=== PATIENT | female | born 1980 | race Caucasian/White ===

== ENCOUNTER 2019-01-18 07:39 | Day surgery (SDC) | payer BC, MEDICAID ==
[~2019-01-18] VITALS: Ht 160 cm; Wt 65.3 kg
[2019-01-18] VITALS (17 sets, daily range): BP systolic 109–131; BP diastolic 62–86; PULSE 52–97; RESP 16–22; Ht 160 cm; Wt 65.3 kg
[~2019-01-18 07:39] MED LIST: CALC600T5 PO; CLOB2.5O PO; FOLI1POW MC; OXCA600T30 PO; PREN1TAB17 PO; SEVOFLURANE 15 MIN ONE
[2019-01-18] MEDS ORDERED: OXCA150T43 ORAL (08:44)
[2019-01-18] MEDS ORDERED: CLOB10TA ORAL (08:44)
--- NOTE | 2019-01-18 09:34 | PREAC ---
Date/Time of Note Date/Time of Note DATE: 01/18/19 TIME: 09:33 Anesthesia Eval and Record Evaluation Time Pre-Procedure Interview DATE: 01/18/19 TIME: 09:33 Age 38 Sex female NPO: 8 hrs Preoperative diagnosis Missed Planned procedure D & C Past Medical History Past Medical History: Includes Neuro: Seizure disorder Surgery & Anesthesia Issues No known issue Meds Anticoagulation: No Beta Oniel within 24 hr: No Reason Beta Oniel not given: Pt. not on B-Oniel Reported Medications Clobazam (Onfi) 10 Mg Tablet, 1 TAB ORAL BID 01/18/19 Oxcarbazepine* (Oxcarbazepine*) 150 Mg Tablet, 1 TAB ORAL BID 01/18/19 Meds reviewed: Yes Allergies Coded Allergies: No Known Allergy (Unverified , 01/18/19) Allergies Reviewed: Yes Labs/Studies Labs Reviewed: Reviewed by anesthesiologist test: Positive Pre-procedure Exam Last vitals Vital Signs Date Temp Pulse Resp B/P (MAP) Pulse Ox O2 O2 Flow FiO2 Time Delivery Rate 01/18/19 97.3 75 16 109/62 100 Room Air 09:02 (78) Airway: Adequate mouth opening Mallampati: Mallampati I Teeth: Normal Lung: Normal Heart: Normal ASA Physical Status ASA physical status: 2 Emergency: None Planned Anesthetic General/MAC: LMA Planned Pain Management Parenteral pain med Pre-operative Attestations Prior to commencing anesthesia and surgery, the patient was re-evaluated, there was verification of: *The patient's identity *The results of appropriate recent lab work and preoperative vital signs *The above evaluation not changing prior to induction *Anesthetic plan, risk benefits, alternative and complications discussed with patient/family; questions answered; patient/family understands, accepts and wishes to proceed. SHREYAS ELIZONDO MD Jan 18, 2019 09:34
[2019-01-18] MEDS ORDERED: CEFAZOLIN 2 GM/50 ML (PMX) 50 ML IVPB ONE (10:00)
[2019-01-18] MEDS ORDERED: LIDOCAINE 2% (SDV) 5 ML INJ ONE (10:09)
[2019-01-18] MEDS ORDERED: PROPOFOL 20 ML ONE (10:10)
[2019-01-18] MEDS ORDERED: METOCLOPRAMIDE 10 MG INJ ONE (10:10)
[2019-01-18] MEDS ORDERED: MEPERIDINE 100 MG INJ ONE (10:10)
[2019-01-18] MEDS ORDERED: ONDANSETRON 4 MG INJ ONE (10:10)
[2019-01-18] MEDS ORDERED: CEFAZOLIN 1 GM INJ ONE (10:10)
[2019-01-18] MEDS ORDERED: ONDANSETRON 4 MG INJ IV PRN (10:30)
[2019-01-18] MEDS ORDERED: FENTAnyl 50 MCG/ML VIAL IV PRN ×3 (10:30)
[2019-01-18] MEDS ORDERED: LABETALOL HCL 20MG INJ IV PRN (10:30)
[2019-01-18] MEDS ORDERED: EPHEDrine SULFATE 50 MG/5 ML SYG IV PRN (10:30)
[2019-01-18] MEDS ORDERED: DIPHENHYDRAMINE 50 MG INJ IV PRN (10:30)
[2019-01-18] MEDS ORDERED: OXYCODONE/ACETAMINOPHEN (5/325) TAB PO PRN ×2 (10:30)
[2019-01-18] MEDS ORDERED: MIDAZOLAM 1 MG/ML 2 ML INJ IV PRN (10:30)
[2019-01-18] MEDS ORDERED: METOCLOPRAMIDE 10 MG INJ IV PRN (10:30)
[2019-01-18] MEDS ORDERED: MEPERIDINE 25 MG INJ IV PRN (10:30)
[2019-01-18] MEDS ORDERED: hydrALAzine 20 MG INJ IV PRN (10:30)
[2019-01-18] MEDS ORDERED: OXYTOCIN 10 UNIT INJ ONE (10:35)
[2019-01-18] MEDS ORDERED: NALOXONE (0.4 MG/ML) INJ ONE (10:52)
--- NOTE | 2019-01-18 11:13 | SIPON ---
Date/Time of Note Date/Time of Note DATE: 01/18/19 TIME: 11:11 Operative Report Preoperative Diagnosis Missed AB Postoperative Diagnosis same Operation/Procedure Performed D&C Surgeon Ivone Atwood MD temporary administrative assistant none Anesthesia: general Estimated blood loss: minimal Transfusion Required none Specimen POC Grafts/Implants none Complications none IVONE OCAMPO MD Jan 18, 2019 11:13
--- NOTE | 2019-01-18 11:34 | PAC ---
Date/Time of Note Date/Time of Note DATE: 01/18/19 TIME: 11:34 Post-Anesthesia Notes Post-Anesthesia Note Last documented vital signs Vital Signs Date Temp Pulse Resp B/P (MAP) Pulse Ox O2 O2 Flow FiO2 Time Delivery Rate 01/18/19 78 20 119/69 99 Room Air 11:10 (86) 01/18/19 98.1 10:59 Activity: WNL Respiratory function: WNL Cardiovascular function: WNL Mental status: Baseline Pain reasonably controlled: Yes Hydration appropriate: Yes Nausea/Vomiting absent: Yes Comments BT: 98.4 SHREYAS ELIZONDO MD Jan 18, 2019 11:34
--- NOTE | 2019-01-18 12:10 | PREOPHP ---
DATE OF ADMISSION: 01/18/2019 HISTORY OF PRESENT ILLNESS: A 38-year-old female 3, para 1, AB 1 is admitted with history of missed . PAST MEDICAL HISTORY: Epilepsy. PAST SURGICAL HISTORY: Leg surgery. ALLERGIES: No known allergies. FAMILY HISTORY: Noncontributory. PHYSICAL EXAMINATION: VITAL SIGNS: The patient is afebrile. Vital signs stable. HEAD, NECK AND CHEST: Within normal limits. ABDOMEN: Soft, nontender, nondistended. PELVIC: Cervix is closed. EXTREMITIES: Neurologically normal. IMPRESSION: Missed . PLAN: Dilation and curettage. Risks, benefits and alternatives of procedure were explained to the p atient. The patient said she understood and gave informed consent for the procedure. Dictated By: IVONE RAMIREZ/SUNNI Conf#: [id number] DID#: [id number]
--- NOTE | 2019-01-18 15:35 | OPR ---
DATE OF OPERATION: 01/18/2019 PREOPERATIVE DIAGNOSIS: Missed . POSTOPERATIVE DIAGNOSIS: Missed . OPERATION PERFORMED: Dilation and curettage. SURGEON: Ivone Fung MD ANESTHESIA: General. ANESTHESIOLOGIST: Juan José Couch MD DESCRIPTION OF PROCEDURE: The patient was taken to operating room, placed on the operating table in supine position. After adequate general anesthesia was given, the patient was placed in dorsal litho abida position. The area was prepared and draped in the usual sterile fashion. Weighted speculum was placed inside the vagina and tenaculum was used to grasp the anterior lip of the cervix. Using cerv ical dilators, the cervical os was dilated to size 8. A size 8 cannula was placed inside the cervica l canal and using suction machine, products of conception were evacuated from the uterine cavity. Ne xt, a sharp curet was used to perform sharp curettage. After the uterine cavity was assured to be em pty, all the instruments were removed. Adequate hemostasis was assured. The patient tolerated the p rocedure well. The patient was awakened from anesthesia and transferred to recovery room in stable c ondition. Estimated blood loss was minimal. All counts were correct. Dictated By: IVONE RAMIREZ/NTS Conf#: [id number] DID#: [id number]
== END 2019-01-18 12:47 | disposition home or self-care (01) ==
LOC: EDBD 07:39 → SDS 07:39 → MERGE 07:39 → SDS 12:47
PROVIDERS: ATTEND Obstetrics & Gynecology
DX: O02.1 Missed abortion (principal)
CPT/HCPCS: 59820; 84703; 85025; 86900; 86901; 88305; J0690; J2175; J2310; J2405; J2590; J2765; Z7512; Z7610